=== PATIENT | male | born 1935 | race Caucasian/White ===

== ENCOUNTER 2022-04-11 18:51 | Emergency (ER) | payer MEDICARE, BC ==
[~2022-04-11] VITALS: Ht 172.7 cm; Wt 83.9 kg
--- NOTE | 2022-04-11 20:11 | NUR ---
After being triaged, patient was placed in hallway on [facility] due to no room available in the ER.
[2022-04-11] MEDS ORDERED: IV NS 1000 ML 1,000 ML IV ONE (20:15)
--- NOTE | 2022-04-11 20:15 | NUR ---
Patient BIB [facility] from home for c/o weakness and polyuria for 2 days. Blood Sugar in the field was 180.
[2022-04-11 20:49] LABS: HEMATOCRIT 41.8 % (36.7-47.1); MEAN CORPUSCULAR HEMOGLOBIN 31.6 uug (23.8-33.4); MEAN CORPUSCULAR VOLUME 93.3 fL (73.0-96.2); PLATELET COUNT (AUTO) 179 K/uL (152-348)
[2022-04-11 20:58] LABS: CARBON DIOXIDE 31 mmol/L (21-32); CHLORIDE 103 mmol/L (98-107); CREATININE 1.1 mg/dL (0.6-1.3); GLUCOSE 127 mg/dL (74-106); POTASSIUM 3.9 mmol/L (3.5-5.1); UREA NITROGEN, BLOOD 17 mg/dL (7-18)
[2022-04-11 21:07] LABS: ALANINE AMINOTRANSFERASE 17 U/L (16-63); ALKALINE PHOSPHATASE 71 U/L (50-136); ASPARTATE AMINOTRANSFERASE 21 U/L (15-37); BILIRUBIN,DIRECT 0.2 mg/dL (0.0-0.2); BILIRUBIN,TOTAL 0.6 mg/dL (0.2-1.0)
[2022-04-11 21:45] LABS: *BILIRUBIN,URIN NEGATIVE (NEGATIVE); *BLOOD, URINE NEGATIVE (NEGATIVE); *CLARITY,URINE CLEAR (CLEAR); *COLOR,URINE YELLOW (YELLOW); *KETONES,URINE TRACE (NEGATIVE); *UROBILINOGEN,URINE 0.2 E.U./dl (NORMAL); LEUKOCYTE ESTERASE ,URINE NEGATIVE (NEGATIVE); NITRITE, URINE NEGATIVE (NEGATIVE); PH,URINE 5.5 (5.0-8.0); UGLUCOSE NEGATIVE (NEGATIVE)
[2022-04-11 21:57] LABS: BACTERIA,URINE NONE SEEN /HPF (NONE SEEN); RBC,URINE 0-3 /HPF (0-3); SQUAMOUS EPITHELIAL CELL,UR FEW /HPF (NONE SEEN); WBC,URINE 0-3 /HPF (0-3)
--- NOTE | 2022-04-11 23:12 | NUR ---
Patient insisting to go AMA, paper signed. Telephone call to pt son to pick up and delivery driver will stated he will be here in 20mins. Pt made aware.
--- NOTE | 2022-04-11 23:41 | NUR ---
Patient does not wish to proceed with medical care recommended by Dr. Rodriguez. Patient son was given information related to possible complications, up to and including , which could occur as a result of leaving the hospital at this time. Patient son verbalizes understanding of risks involved due to leaving against medical advice. Patient has signed AMA form.
[2022-04-11 23:42] VITALS: BP 131/79
== END 2022-04-11 23:40 | disposition left against medical advice (07) ==
LOC: ER 18:56
DX: R53.1 Weakness (principal); R73.9 Hyperglycemia, unspecified; Z20.822 Contact with and (suspected) exposure to COVID-19; I70.0 Atherosclerosis of aorta
CPT/HCPCS: 99285; 96360; 71045; 87426; 80076; 80048; 81001; 85025; 87400; 87040 ×2; 84484; 36415; 93005; 83605; 87420; J7040; A4663